=== PATIENT | female | born 1970 | race Caucasian/White ===

== ENCOUNTER 2021-10-12 10:26 | Emergency (ER) | payer OTHER ==
[~2021-10-12] VITALS: Ht 172.7 cm; Wt 97.5 kg
[2021-10-12] MEDS ORDERED: WELLBUTRIN SR150 M1 PO (10:39)
[2021-10-12] MEDS ORDERED: CLEOCIN HCL300 MG PO (11:51)
[2021-10-12] MEDS ORDERED: MUPIROCIN22 GM TOP (11:51)
[2021-10-12 12:06] VITALS: BP 146/77
== END 2021-10-12 12:07 | disposition home or self-care (01) ==
LOC: M.ERS 10:26
DX: L02.415 Cutaneous abscess of right lower limb (principal); F32.9 Major depressive disorder, single episode, unspecified; Z90.711 Acquired absence of uterus with remaining cervical stump; Z90.49 Acquired absence of other specified parts of digestive tract; Z79.899 Other long term (current) drug therapy; Z88.0 Allergy status to penicillin; Z88.2 Allergy status to sulfonamides